=== PATIENT | female | born 1965 | race Caucasian/White ===

== ENCOUNTER 2023-11-19 06:29 | Emergency (ER) | payer BC, SELFPAY ==
[2023-11-19] VITALS (9 sets, daily range): BP systolic 95–128; BP diastolic 67–82; BMI 23.6
--- NOTE | 2023-11-19 07:48 | ED.GENMED ---
History of Present Illness
<Angel Romero PA-C - Last Filed: 11/19/23 11:32>
General
Chief Complaint: Breathing Problem
Source: patient
Exam Limitations: none
Time Seen by Provider: 11/19/23 07:29
History of Present Illness
History of Present Illness:
58-year-old female with history of breast cancer presents with the onset of upper chest discomfort starting last night. Goes across the upper chest into her neck. This pain is made worse with laying down and breathing deep. She denies shortness
of breath. Ibuprofen 600 mg earlier this morning did not help. She denies any numbness or tingling to the arms or legs. No headache. No recent fever. No cough. She denies leg swelling or calf pain. She denies hemoptysis. No other complaints
at this time
Phy Exam
<Angel Romero PA-C - Last Filed: 11/19/23 11:32>
Physical Exam
Physical Exam:
General: Uncomfortable appearing female no acute respiratory distress
HEENT: Normocephalic atraumatic heart: Regular rate and rhythm no audible murmurs
Lungs: Clear no wheeze
Extremities: No cyanosis or edema
Skin: Warm no rash
Vascular: 2+ radial pulse bilateral wrist
Scores
<Angel Romero PA-C - Last Filed: 11/19/23 11:32>
Heart Failure Risk
Heart Failure Risk Score: Not Applicable
Course
<MIN Verde Last Filed: 11/19/23 11:32>
Orders/Labs/Results
Orders:
Orders
11/19/23 06:29
Electrocardiogram (*1) Urgent
Reason for Study: Shortness of Breath
EKG- Treatment ONCE
11/19/23 06:46
Cardiac Monitoring- Treatment ONCE
IV Insert/Care/Rem.- Treatment PRN
CR Chest - 2 Views Urgent
Comment:
Reason For Exam: respiratory distress
O2 Therapy [RESP] Urgent
Titrate/Wean O2 to maintain O2 sat greater than (%): 93
Special Instructions: TO MAINTAIN CONTINUOUS O2 SATS >/= 93%
Pulse Ox/cont/shift [RESP] Urgent
Quantity: 1
Special Instructions: continuous pulse ox
11/19/23 07:44
CT Chest Pe Study Urgent
Comment:
Reason For Exam: chest pain
HYDROmorphone [Dilaudid] 0.5 mg IV NOW STA
11/19/23 07:54
C-Reactive Protein Urgent
Comment: ADD ON
Complete Blood Count/With Diff Urgent
Comprehensive Metabolic Panel Urgent
Erythrocyte Sed Rate Urgent
Comment: ADD ON
NT-proBNP Urgent
Troponin I Urgent
11/19/23 08:11
diazePAM [Valium Injection] 5 mg IV NOW STA
11/19/23 08:40
Electrocardiogram (*1) Urgent
Reason for Study: Chest Pain
EKG- Treatment ONCE
11/19/23 08:52
Add On- LAB Urgent
Tests Added?: sed rate, crp
11/19/23 08:57
Ketorolac [Toradol] 15 mg IV NOW STA
11/19/23 11:04
Troponin I Urgent
Abnormal Lab Results
11/19/23
07:54
Absolute Neuts (auto) 6.6 H 10^3/uL
(1.4-6.5)
Absolute Lymphs (auto) 0.5 L 10^3/uL
(1.2-3.4)
Absolute Monos (auto) 0.9 H 10^3/uL
(0.1-0.6)
Neutrophils % 81.8 H %
(42.2-75.2)
Lymphocytes % 5.9 L %
(20.5-51.1)
Monocytes % 11.0 H %
(1.7-9.3)
Glucose 119 H mg/dl
(70-99)
Albumin 5.1 H g/dl
(3.5-5.0)
11/19/23 07:54
11/19/23 07:54
Vital Signs
Initial and Last Documented VS:
Initial Vital Signs
Temp Pulse Resp BP Pulse Ox
98.3 F 71 20 128/81 98
11/19/23 06:42 11/19/23 06:42 11/19/23 06:42 11/19/23 06:42 11/19/23 06:42
Last Documented Vital Signs
Temp Pulse Resp BP Pulse Ox
98.3 F 64 18 103/77 98
11/19/23 06:42 11/19/23 09:30 11/19/23 09:30 11/19/23 08:47 11/19/23 09:30
<Oscar Vasquez, DO - Last Filed: 11/19/23 11:23>
Orders/Labs/Results
Orders:
Orders
11/19/23 06:29
Electrocardiogram (*1) Urgent
Reason for Study: Shortness of Breath
EKG- Treatment ONCE
11/19/23 06:46
Cardiac Monitoring- Treatment ONCE
IV Insert/Care/Rem.- Treatment PRN
CR Chest - 2 Views Urgent
Comment:
Reason For Exam: respiratory distress
O2 Therapy [RESP] Urgent
Titrate/Wean O2 to maintain O2 sat greater than (%): 93
Special Instructions: TO MAINTAIN CONTINUOUS O2 SATS >/= 93%
Pulse Ox/cont/shift [RESP] Urgent
Quantity: 1
Special Instructions: continuous pulse ox
11/19/23 07:44
CT Chest Pe Study Urgent
Comment:
Reason For Exam: chest pain
HYDROmorphone [Dilaudid] 0.5 mg IV NOW STA
11/19/23 07:54
C-Reactive Protein Urgent
Comment: ADD ON
Complete Blood Count/With Diff Urgent
Comprehensive Metabolic Panel Urgent
Erythrocyte Sed Rate Urgent
Comment: ADD ON
NT-proBNP Urgent
Troponin I Urgent
11/19/23 08:11
diazePAM [Valium Injection] 5 mg IV NOW STA
11/19/23 08:40
Electrocardiogram (*1) Urgent
Reason for Study: Chest Pain
EKG- Treatment ONCE
11/19/23 08:52
Add On- LAB Urgent
Tests Added?: sed rate, crp
11/19/23 08:57
Ketorolac [Toradol] 15 mg IV NOW STA
11/19/23 11:04
Troponin I Urgent
Abnormal Lab Results
11/19/23
07:54
Absolute Neuts (auto) 6.6 H 10^3/uL
(1.4-6.5)
Absolute Lymphs (auto) 0.5 L 10^3/uL
(1.2-3.4)
Absolute Monos (auto) 0.9 H 10^3/uL
(0.1-0.6)
Neutrophils % 81.8 H %
(42.2-75.2)
Lymphocytes % 5.9 L %
(20.5-51.1)
Monocytes % 11.0 H %
(1.7-9.3)
Glucose 119 H mg/dl
(70-99)
Albumin 5.1 H g/dl
(3.5-5.0)
11/19/23 07:54
11/19/23 07:54
Vital Signs
Initial and Last Documented VS:
Initial Vital Signs
Temp Pulse Resp BP Pulse Ox
98.3 F 71 20 128/81 98
11/19/23 06:42 11/19/23 06:42 11/19/23 06:42 11/19/23 06:42 11/19/23 06:42
Last Documented Vital Signs
Temp Pulse Resp BP Pulse Ox
98.3 F 64 18 103/77 98
11/19/23 06:42 11/19/23 09:30 11/19/23 09:30 11/19/23 08:47 11/19/23 09:30
<Angel Romero PA-C - Last Filed: 11/19/23 11:32>
MDM/Problems Addressed
Differential Diagnosis Includes:
Patient presents with pleuritic chest discomfort across both sides of the upper chest worse with breathing and laying down. History of breast cancer currently receiving radiation. Consider musculoskeletal chest pain versus ACS versus PE versus
dissection
EKG reviewed shows sinus rhythm without obvious ischemic changes
Given moderate risk with breast cancer of PE, will order PE study. EKG pending. Ibuprofen not helping pain. Did order half milligram of Dilaudid
<Angel Romero PA-C - Last Filed: 11/19/23 11:32>
*Critical Care Note
Total Time (30-74mins, 75-104mins- exclusive of procedures): Not Applicable
<Angel Romero PA-C - Last Filed: 11/19/23 11:32>
Update Note
Update Note:
CT PE study negative for PE or dissection. Patient still in significant amount of pain. Will treat with Toradol and Valium as well on top of her initial Dilaudid. She received minimal relief. Of note CT also shows a new mixed sclerotic lesion in
the mid body of the sternum concerning for possible metastatic disease. Bone scan recommended for further evaluation this was clarified with the patient. Patient does want to go home. Will prescribe medicine for pain and prednisone for
inflammation. She was advised to follow-up with her oncology team
ED Attending Note
<Angel Romero PA-C - Last Filed: 11/19/23 11:32>
-
Portions of this chart may have been created with voice recognition software.� Occasional wrong word or��sound alike� substitutions may have occurred due to the inherent limitations of voice recognition software.
<Oscar Vasquez DO - Last Filed: 11/19/23 11:23>
ED Attending Note
Patient seen and examined by attending physician: Yes
I performed the substantive portion of visit, reviewed & personally made and approve the management plan that is documented in note by myself or NICOLE.: Yes
I performed a history and physical exam of patient and discussed management with resident, I reviewed resident's note and agree with documented findings and plan of care.: Yes
ED Attending Note:
I evaluated the patient at bedside. The patient does have positional changes that make the symptoms worse and better. She feels worse when she leans forward and feels better when she stands up. She does have tenderness to palpation of the
anterior chest wall. CTA negative for severe pathology. Possible metastatic lesion noted to the sternum.
Discharge Plan
Departure
Patient Disposition: Home (Routine Discharge)
Date of Disposition: 11/19/23
Time of Disposition: 11:28
Patient with high blood pressure during this ER visit?: No
Discharge Problem:
Chest pain
Instructions: Chest pain
Prescriptions:
New
prednisone 20 mg tablet
40 mg PO DAILY 5 Days Qty: 10 0RF
oxycodone-acetaminophen [Percocet] 5-325 mg tablet
1 tab PO Q6HPRN PRN (Reason: pain) Qty: 12 0RF
Referrals:
Bridger Reynolds MD [Family Provider] -
Activity Restrictions/Additional Instructions:
Take pain medicine as needed. Use prednisone as directed. As discussed there is an abnormal finding in your sternum. This warrants follow-up with your oncology team for potential bone scan. Return if worse otherwise
Interventions
Interventions:
*Risk Screen - Suicide Last Done: 11/19/23 06:30
*General Assessment Last Done: 11/19/23 11:25
*Neglect/Abuse Screening Last Done: 11/19/23 06:42
*ED COVID-19 Vaccine History Last Done: 11/19/23 06:42
ED- Cardiac Assessment Last Done: 11/19/23 08:07
ED- Pulmonary Assessment Last Done: 11/19/23 09:00
Discharge Date and Time
Print Language: KAZAKH
[2023-11-19] MEDS: DILAUDID 0.5 MG IV ×2 (07:59→12:08)
[2023-11-19 08:03] LABS: % Basophils 0.4 % (0-2); % Eosinophils 0.5 % (0-6); % Immature Granulocytes 0.4 % (0-0.5); % Lymphocytes 5.9 % (20.5-51.1); % Neutrophils 81.8 % (42.2-75.2); Absolute Lymphocytes 0.5 10^3/uL (1.2-3.4); Absolute Monocytes 0.9 10^3/uL (0.1-0.6); Absolute Neutrophils 6.6 10^3/uL (1.4-6.5); Hematocrit 41.5 % (37.0-47.0); Mean Corp Hgb Conc. 33.7 g/dL (33.0-37.0); Mean Corpuscular Hgb 30.9 pg (27.0-31.0); Mean Corpuscular Volume 91.6 fL (81.0-99.0); Mean Platelet Volume 9.6 fL (7.4-10.4); Nucleated Red Blood Cells % 0 %; Platelet Count 262 10^3/uL (130-400); Red Blood Cell Count 4.53 10^6/uL (4.20-5.40); Red Cell Dist. Width 12.8 % (11.5-14.5); White Blood Cell Count 8.1 10^3/uL (4.8-10.8)
[2023-11-19] MEDS: VALIUM INJECTION 5 MG IV (08:15)
[2023-11-19 08:22] LABS: ALT (SGPT) 23 U/L (0-35); AST (SGOT) 29 U/L (14-36); Albumin 5.1 g/dl (3.5-5.0); Alkaline Phosphatase 70 U/L (38-126); Blood Urea Nitrogen 16 mg/dl (7-17); Calcium 10.2 mg/dl (8.4-10.2); Carbon Dioxide 24 mmol/L (22-30); Chloride 103 mmol/L (98-107); Estimated Creatinine Clearance 98 ml/min; Glucose 119 mg/dl (70-99); Potassium 4.6 mmol/L (3.5-5.1); Sodium 141 mmol/L (135-145); Total Bilirubin 0.9 mg/dl (0.2-1.3); eGFR > 60.00
[2023-11-19 08:34] LABS: NT-proBNP 24.3 pg/ml; Troponin I < 0.012 ng/ml
[2023-11-19] MEDS: TORADOL 15 MG IV (09:02)
[2023-11-19 09:11] LABS: Erythrocyte Sed Rate 13 mm/hour (0-20)
[2023-11-19 11:38] LABS: Troponin I < 0.012 ng/ml
[2023-11-19] MEDS: ZOFRAN 4 MG IV (12:15)
== END 2023-11-19 12:25 | disposition home or self-care (01) ==
LOC: EMR 06:29
PROVIDERS: Physician Assistant; Student in an Organized Health Care Education/Training Program; EMERGENCY PHYSICIAN Emergency Medicine; FAMILY PHYSICIAN Family Medicine
DX: R07.89 Other chest pain (principal); M54.2 Cervicalgia; C50.919 Malignant neoplasm of unspecified site of unspecified female breast; R91.8 Other nonspecific abnormal finding of lung field
CPT/HCPCS: 99285; 96374; 96375 ×3; 96376; 71046; 71275; 80053; 83880; 84484; 85025; 85652; 86140; 93005; Q9967